=== PATIENT | male | born 1935 | race Caucasian/White ===

== ENCOUNTER → 2019-11-30 | Outpatient (CLI) | payer MEDICARE ==
[~2019-11-30] MED LIST: ATOR20TA37 PO; PANT20TA3 PO; TAMS-11 PO
[2019-11-30 13:42] LABS: ANION GAP 6 mmol/L (5-15); CALCIUM 9.1 mg/dL (8.5-10.1); CHLORIDE 109 mmol/L (98-107); CREATININE 1.32 mg/dL (0.7-1.3); INTERNATIONAL NORMALIZED RATIO 0.99 (0.93-1.1); PROTHROMBIN TIME 10.5 Seconds (9.6-11.5)
[2019-11-30 13:46] LABS: MEAN CORPUSCULAR HGB CONC 32.9 g/dL (33.2-36.2); MEAN PLATELET VOLUME 9.4 fL (7.4-10.4); PLATELET COUNT 165 x10^3/uL (130-400); RED BLOOD COUNT 5.79 x10^6/uL (4.38-5.82); RED CELL DISTRIBUTION WIDTH 15.3 % (9.4-14.8)
[2019-11-30 14:21] LABS: MICROSCOPIC NOT IND
[2019-11-30 15:59] LABS: MD YES
[2019-11-30 16:00] LABS: LYMPH#(MANUAL) 3.36 x10^3/uL (1-3.4); LYMPHS% (MANUAL) 58 % (22-44); MONOS#(MANUAL) 0.46 x10^3/uL (0.3-2.7); MONOS% (MANUAL) 8 % (2-9); REACTIVE LYMPHS # (MANUAL) 0.64 x10^3/uL (0-0); REACTIVE LYMPHS % (MANUAL) 11 % (0-0); SEG#(MANUAL) 1.33 x10^3/uL (1.8-6.8); SEGS% (MANUAL) 23 % (42-75)
[2019-11-30 16:01] LABS: ANISOCYTOSIS 1+
[2019-11-30 16:02] LABS: <PLATELET ESTIMATE> ADEQUATE; LARGE PLATELETS 1+
== END | disposition home or self-care (01) ==
LOC: STAR 12:43
PROVIDERS: ATTEND Urology
DX: Z01.818 Encounter for other preprocedural examination (principal); N20.0 Calculus of kidney; R94.31 Abnormal electrocardiogram [ECG] [EKG]
CPT/HCPCS: 36415; 80048; 81003; 85025; 85610; 85730; 87086; 93005

== ENCOUNTER 2019-12-06 09:44 | Day surgery (SDC) | payer MEDICARE ==
[~2019-12-06] VITALS: Ht 170.2 cm; Wt 63.9 kg
[2019-12-06] MEDS ORDERED: CHLORHEXIDINE 15 ML UDC MM STA (10:07)
[2019-12-06] MEDS ORDERED: FENTANYL PF 250 MCG/5ML ONE (10:32)
[2019-12-06] MEDS ORDERED: ROCURONIUM 10MG/ML,5ML ONE (10:47)
[2019-12-06] MEDS ORDERED: NEOSTIGMINE 1 MG/ML, 10ML ONE (10:47)
[2019-12-06] MEDS ORDERED: CEFAZOLIN 1,000 MG ONE (10:47)
[2019-12-06] MEDS ORDERED: PROPOFOL 10 MG/ML, 20ML ONE (10:47)
[2019-12-06] MEDS ORDERED: GLYCOPYRROLATE 0.2MG/1ML, 5ML ONE (10:47)
[2019-12-06] MEDS ORDERED: LACTATED RINGERS 1,000 ML IV SCH (11:00)
[2019-12-06] MEDS ORDERED: EPHEDRINE 50 MG/ML, 1ML ONE (11:49)
[2019-12-06] MEDS ORDERED: SUGAMMADEX 200 MG/2 ML IVPush ONE (11:52)
[2019-12-06] MEDS ORDERED: hydrALAzine 20 MG/ML, 1ML IV PRN (12:00)
[2019-12-06] MEDS ORDERED: ACETAMINOPHEN 325 MG TABLET PO PRN (12:00)
[2019-12-06] MEDS ORDERED: LABETALOL 5MG/ML, 20ML IV PRN (12:00)
[2019-12-06] MEDS ORDERED: MEPERIDINE/PF 25MG/0.5ML IVPush PRN (12:00)
[2019-12-06] MEDS ORDERED: morphine SULFATE 10 MG/ML, 1ML IVPush PRN (12:00)
[2019-12-06] MEDS ORDERED: ONDANSETRON 2MG/ML, 2ML IVPush PRN (12:00)
[2019-12-06] MEDS ORDERED: HYDROmorphone 1 MG/ML, 1ML INJ IVPush PRN (12:00)
[2019-12-06] MEDS ORDERED: OXYcodone 5 MG/5 ML ORAL.SOL UDC PO PRN (12:00)
[2019-12-06] MEDS ORDERED: FENTANYL PF 100 MCG/2ML IV PRN (12:00)
[2019-12-06] MEDS ORDERED: ONDANSETRON 2MG/ML, 2ML IV PRN (12:30)
== END 2019-12-06 15:30 | disposition home or self-care (01) ==
LOC: OUT 09:44
PROVIDERS: ATTEND Urology
DX: N20.1 Calculus of ureter (principal); Z11.59 Encounter for screening for other viral diseases; K21.9 Gastro-esophageal reflux disease without esophagitis; E78.5 Hyperlipidemia, unspecified; Z79.899 Other long term (current) drug therapy; Z79.2 Long term (current) use of antibiotics; Z82.49 Family history of ischemic heart disease and other diseases of the circulatory system
CPT/HCPCS: 36415; 52352; 74018; 82360; 87635; 88300; 93005; J0690; J2704; J3010; J7120; 76000; J2710